=== PATIENT | male | born 1990 | race Hispanic/Latino ===

== ENCOUNTER 2017-04-08 18:47 | Emergency (ER) | payer SELFPAY ==
[2017-04-08 18:58] VITALS: BP 133/51; PULSE 76; RESP 20; TEMP 98.1; O2SAT 97
--- NOTE | 2017-04-08 19:45 | C.PDOC ---
Time Seen by Provider: 04/08/17 19:42 Chief Complaint (Nursing): ENT Problem Past Medical History Vital Signs: Last Vital Signs Temp 98.1 F 04/08/17 18:55 Pulse 76 04/08/17 18:55 Resp 20 04/08/17 18:55 BP 133/51 L 04/08/17 18:55 Pulse Ox 97 04/08/17 18:55 - Social History Hx Alcohol Use: No Hx Substance Use: No ED Course And Treatment O2 Sat by Pulse Oximetry: 97 Medical Decision Making Medical Decision Making: pt with small tender lymph node anterior to left ear lobe, d/c wiht with clinic follow up Disposition Counseled Patient/Family Regarding: Diagnosis, Need For Followup - Disposition Referrals: [facility] at [facility] [Outside] Disposition: HOME/ ROUTINE Disposition Time: 19:44 Condition: STABLE Additional Instructions: Please follow up with medical clinic in the next week for further evaluation of lymph node. Call for an appointment. Forms: [employer] (Luxembourgish)
--- NOTE | 2017-04-08 19:47 | C.PDOC ---
History Of Present Illness 26 y/o healthy male presents to ED with cc of tender lymph node anterior to left ear x 1 day, no ear pain, no sore throat, no dental pain, no fever, no neck pain. Time Seen by Provider: 04/08/17 19:42 Chief Complaint (Nursing): ENT Problem History Per: Patient History/Exam Limitations: None Onset/Duration Of Symptoms: Days (1) Current Symptoms Are (Timing): Still Present Quality (Ear): Pain W/Touch (to node). denies: Redness Quality (Mouth/Throat): denies: Tenderness, Swelling Past Medical History Reviewed: Historical Data, Nursing Documentation, Vital Signs Vital Signs: Last Vital Signs Temp 98.1 F 04/08/17 18:55 Pulse 76 04/08/17 18:55 Resp 20 04/08/17 20:00 BP 133/51 L 04/08/17 18:55 Pulse Ox 97 04/08/17 19:49 - Medical History PMH: No Chronic Diseases Family History: States: Unknown Family Hx - Social History Hx Alcohol Use: No Hx Substance Use: No Review Of Systems Constitutional: Negative for: Fever, Chills ENT: Negative for: Ear Pain, Ear Discharge, Nose Congestion, Mouth Pain, Throat Pain Skin: Positive for: Other (small tender mass anterior to left ear) Physical Exam - Physical Exam Appears: Non-toxic, No Acute Distress Skin: Normal Color, Warm, Dry Head: Atraumatic, Normacephalic Eye(s): bilateral: Normal Inspection, PERRL, EOMI Ear(s): Left: Other (0.5 cm tender node anterior to left earlobe, no warmth), Bilateral: Normal Nose: Normal Oral Mucosa: Moist Throat: No Erythema, No Exudate Neck: Normal, Supple Lymphatic: Other (small tender node anterior to left ear lobe) ED Course And Treatment O2 Sat by Pulse Oximetry: 97 Medical Decision Making Medical Decision Making: pt with small tender lymph node anterior to left ear lobe, d/c with with clinic follow up Disposition Counseled Patient/Family Regarding: Diagnosis, Need For Followup - Disposition Referrals: [facility] at [facility] [Outside] Disposition: HOME/ ROUTINE Disposition Time: 20:00 Condition: STABLE Additional Instructions: Please follow up with medical clinic in the next week for further evaluation of lymph node. Call for an appointment. Forms: [facility] (Green[place]ic), General Discharge Instructions - Clinical Impression Clinical Impression: Lymph node symptom
== END 2017-04-08 19:59 | disposition home or self-care (01) ==
LOC: C.ER 18:47
DX: I89.9 Noninfective disorder of lymphatic vessels and lymph nodes, unspecified (principal)